=== PATIENT | female | born 1995 ===

== ENCOUNTER 2021-07-12 11:24 | Outpatient (REF) | payer OTHER, SELFPAY ==
[2021-07-12 13:12] LABS: CT PCR NOT DETECTED (Not Detect.); NG PCR NOT DETECTED (Not Detect.)
== END 2021-07-12 11:25 | disposition home or self-care (01) ==
LOC: HO.LNP 11:24
PROVIDERS: Visit Provider Internal Medicine
DX: Z11.3 Encounter for screening for infections with a predominantly sexual mode of transmission (principal)
CPT/HCPCS: 87491; 87591